=== PATIENT | female | born 1955 | race Caucasian/White ===

== ENCOUNTER → 2017-11-15 | Outpatient (CLI) | payer BC ==
[~2017-11-15] MED LIST: FUROSEMIDE INJ 10 MG/ML 4 ML VIAL ONE
--- NOTE | 2017-11-15 15:56 | Diagnostic Imaging Report ---
PROCEDURE: CT ABDOMEN AND PELVIS WITHOUT CONTRAST TECHNIQUE: The abdomen and pelvis were scanned utilizing a multidetector helical scanner from the diaphragm to the lesser trochanter after the oral administration of water No IV contrast was administered per protocol. Coronal and sagittal multiplanar reformations were obtained. COMPARISON: Patients [facility], CT, CT ABDOMEN/PELVIS WO, 04/12/2011, 11:38. Patients [facility], US, RENAL ULTRASOUND, 01/14/2009, 11:04. Patients [facility], CT, CT ABDOMEN/PELVIS WO, 10/27/2016, 10:57. INDICATIONS: RIGHT FLANK PAIN FINDINGS: ABSENCE OF INTRAVENOUS CONTRAST DECREASES SENSITIVITY FOR DETECTION OF FOCAL LESIONS AND VASCULAR PATHOLOGY. LOWER THORAX: Stable linear opacity in the lingula, consistent with scarring. Atherosclerotic calcification of the coronary arteries and mitral annulus. HEPATOBILIARY: No focal hepatic No biliary ductal dilatation. Cholecystectomy clips. SPLEEN: No splenomegaly. PANCREAS: No focal masses or ductal dilatation. ADRENALS: No adrenal nodules. KIDNEYS/URETERS: Stable punctate nonobstructing calculus in the superior pole of the right kidney (series 3, image 52). No other renal or any ureteral calculi. No hydronephrosis or obstruction. Stable moderate right renal scarring. No other contour abnormalities. Possible left renal peripelvic cysts. PELVIC ORGANS/BLADDER: No focal lesion or wall thickening. Uterus is absent. No adnexal masses. PERITONEUM / RETROPERITONEUM: No free air or fluid. LYMPH NODES: No lymphadenopathy. VESSELS: Mild atherosclerotic calcification of the distal abdominal aorta. GI TRACT: No bowel dilation or evidence of obstruction. Descending and sigmoid colon diverticulosis without diverticulitis. Appendix is well identified and normal in caliber. BONES AND SOFT TISSUES: No acute bony abnormalities. Tiny fat containing umbilical hernia. Calcified injection granulomas in the right gluteal region. IMPRESSION: 1. stable punctate nonobstructing calculus in the superior pole of the right kidney. No other renal or any ureteral calculi, hydronephrosis, or obstruction. 2. Stable moderate right renal scarring. Lucas King M.D. Dictated by: Lucas King M.D. on 11/15/2017 at 16:04 Electronically approved by: Lucas King M.D. on 11/15/2017 at 16:04
--- NOTE | 2017-11-15 17:33 | Diagnostic Imaging Report ---
Renal Scan with Lasix Washout Clinical information: 62 F with renal calculi, right flank pain and history of UTI's. Technique: Following intravenous administration of 11 mCi of Tc-99m MAG3, dynamic images of the kidneys in the posterior projection were obtained through 40 minutes. Lasix 40 mg was administered intravenously at 10 minutes post injection of the tracer. Report: Left kidney: Perfusion of the left kidney is prompt. The kidney has a normal reniform shape. Extraction of tracer from the blood pool is normal. Clearance of tracer from the renal parenchyma is prompt. The pelvicalyceal system is not dilated. Physiologic pooling of tracer within the pelvicalyceal system is seen. Drainage of tracer from the pelvicalyceal system is prompt and adequate prior to administration of Lasix. No significant stasis of tracer is seen within the left ureter. Right kidney: Perfusion to the right kidney is prompt. The right kidney is small and consist of two round areas of functioning renal parenchyma. Extraction of tracer by the remaining renal parenchyma is normal. Clearance of tracer from the renal parenchyma is prompt. The pelvicalyceal system is not dilated. Physiologic pooling of tracer within the pelvicalyceal system is seen. No net drainage of tracer from the pelvicalyceal system is seen prior to administration of Lasix. Washout of tracer from the pelvicalyceal system following administration of Lasix is rapid with a T-1/2 of 4 minutes (normal less than 15 minutes). No significant stasis of tracer is seen within the right ureter. Differential renal function: The left kidney contributes 76% of total renal function and the right kidney contributes 24% (normal 43-57%). Impression: 1. The function of the left kidney is generally normal. No hydronephrosis is present. No physiologically significant obstruction of the renal collecting system is present. 2. 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 The loss of renal parenchyma accounts of the differential renal function of 24%. The remaining renal parenchyma has normal function. No hydronephrosis or physiologically significant obstruction of the renal collecting system is present. Signed by: Dr. Yasmin Trammell M.D. on 11/15/2017 5:29 PM
== END ==
LOC: NM 13:40
PROVIDERS: ATTEND Urology
DX: N20.0 Calculus of kidney (principal); R10.9 Unspecified abdominal pain
CPT/HCPCS: 74176; 78708; A9562; J1940

== ENCOUNTER → 2019-05-07 | Outpatient (CLI) | payer BC ==
--- NOTE | 2019-05-07 16:58 | Diagnostic Imaging Report ---
EXAMINATION: CT of the abdomen and pelvis without contrast. TECHNIQUE: Spiral CT images of the abdomen and pelvis were performed from the lung bases to the lesser trochanters. No intravenous contrast was given per renal stone protocol. Coronal and sagittal reformatted images were obtained. Technique modulation with low-dose technique was utilized to maintain the lowest dose possible to the patient. DLP: 908.39 mGy-cm COMPARISON: None. CLINICAL HISTORY: History of renal stones with scarring and atrophic changes of the right kidney. DISCUSSION: ABSENCE OF INTRAVENOUS CONTRAST DECREASES SENSITIVITY FOR DETECTION OF FOCAL LESIONS AND VASCULAR PATHOLOGY. ABDOMEN/PELVIS: LOWER THORAX: Unremarkable. HEPATOBILIARY:No focal hepatic lesions. No biliary ductal dilation. The gallbladder is absent. SPLEEN: No splenomegaly. PANCREAS: No focal masses or ductal dilatation. ADRENALS: No adrenal nodules. KIDNEYS/URETERS: No hydronephrosis or solid mass lesions. Cortical irregularity and scarring on the right side. Small left peripelvic cysts. PELVIC ORGANS/BLADDER: The bladder is normal. PERITONEUM/RETROPERITONEUM: No free air or fluid. LYMPH NODES: No intra-abdominal,retroperitoneal, pelvic or inguinal lymphadenopathy. VESSELS: Vascular calcification. GI TRACT: No distention or wall thickening. Colonic diverticula are present. BONES AND SOFT TISSUES: No bony destructive lesions. No soft tissue abnormalities. IMPRESSION: 1. Irregularity and cortical scarring involving the right kidney. 2. No evidence of hydronephrosis, renal or ureteral stones. Signed by: Dr. Zev Lee DO on 05/07/2019 4:55 PM
--- NOTE | 2019-05-07 20:34 | Diagnostic Imaging Report ---
Renal Scan with Lasix Washout Clinical information: Large right renal calculus x 9 years. Now with right kidney/flank pain and mid back pain x1 month. Comparison: Most recent renal scan with Lasix 11/15/2017 Technique: Following intravenous administration of 10 mCi of Tc-99m MAG3, dynamic images of the kidneys in the posterior projection were obtained through 40 minutes. Lasix 40 mg was administered intravenously at 10 minutes post injection of the tracer. Report: Left kidney: Perfusion of the left kidney is prompt. The kidney has a normal reniform shape. Extraction of tracer from the blood pool is normal. Clearance of tracer from the renal parenchyma promptly but is not complete by the end of the study. The pelvicalyceal system is not dilated although calyces are prominent in the upper pole and mid aspect of the kidney.. Minimally increased pooling of tracer is seen within the prominent calices. Drainage of tracer from the pelvicalyceal system is prompt and adequate prior to administration of Lasix. No significant stasis of tracer is seen within the left ureter. Right kidney: Perfusion to the right kidney is prompt. The right kidney is markedly reduced in size and consist of two round areas of functioning renal parenchyma. Extraction of tracer by the remaining renal parenchyma is normal. Clearance of tracer from the renal parenchyma begins promptly is not complete by the end of the study . The pelvicalyceal system is not dilated. Increased pooling of tracer is seen in the prominent renal pelvis. No net drainage of tracer from the pelvicalyceal system is seen prior to administration of Lasix. Washout of tracer from the pelvicalyceal system following administration of Lasix is rapid with a T-1/2 of 7 minutes (normal less than 15 minutes). No significant stasis of tracer is seen within the right ureter. Differential renal function: The left kidney contributes 75% of total renal function and the right kidney contributes 25% (normal 43-57%), previously left 76% and right 24%. Impression: 1. The left kidney shows some evidence of mild medical renal disease, greater than on prior renal scan. Dehydration at the time of the study can also give this appearance. No hydronephrosis is present. No physiologically significant obstruction of the renal collecting system is present. The appearance of the kidney is unchanged from the prior study and the drainage pattern is also the same. The differential renal function is also unchanged. 2. 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 The loss of renal parenchyma accounts of the differential renal function of 24%. Mild medical renal disease may be present versus dehydration at the time of the study. The remaining renal parenchyma has normal function. No hydronephrosis or physiologically significant obstruction of the renal collecting system is present. The appearance of the kidney is unchanged compared to the prior study. The washout pattern for washout of the pelvicalyceal system is slightly more prolonged compared to the prior study but still does not show any evidence of physiologically significant obstruction. The differential function is unchanged. Signed by: Dr. Ysamin Trammell M.D. on 05/07/2019 8:30 PM
== END ==
LOC: CT 13:33
PROVIDERS: ATTEND Urology
DX: N20.0 Calculus of kidney (principal)
CPT/HCPCS: 74176; 78708; A9562; J1940